=== PATIENT | male | born 1960 | race Two or more races ===

== ENCOUNTER 2023-02-24 17:41 | Emergency (ER) | payer OTHER ==
[~2023-02-24] VITALS: Ht 170.2 cm; Wt 73.0 kg
[2023-02-24] MEDS ORDERED: HYDROmorphone HCL 2 MG/ML VL/or syr IM ONE (18:00)
[2023-02-24] MEDS ORDERED: ONDANSETRON ODT 4 MG TAB PO ONE (18:00)
[2023-02-24] MEDS ORDERED: IBUP-1455 PO ×3 (19:06→20:36)
[2023-02-24] MEDS ORDERED: ZOFR4T PO ×3 (19:06→20:36)
[2023-02-24] MEDS ORDERED: HYDR-4902 PO (19:06)
[2023-02-24 20:40] VITALS: BP 153/51
== END 2023-02-24 20:42 | disposition home or self-care (01) ==
LOC: ER 17:41
DX: S16.1XXA Strain of muscle, fascia and tendon at neck level, initial encounter (principal); S00.03XA Contusion of scalp, initial encounter; S06.0X1A Concussion with loss of consciousness of 30 minutes or less, initial encounter; W18.39XA Other fall on same level, initial encounter; Y93.89 Activity, other specified; Y92.89 Other specified places as the place of occurrence of the external cause; Y99.8 Other external cause status
CPT/HCPCS: 70450; 72125; 96372; 99285; J1170; Q0162